=== PATIENT | female | born 1960 | race Caucasian/White ===

== ENCOUNTER 2022-10-29 10:43 | Emergency (ER) | payer OTHER ==
[~2022-10-29] VITALS: Ht 162.5 cm; Wt 72.6 kg
[2022-10-29] MEDS ORDERED: VIBRAMYCIN100 MG PO (11:13)
== END 2022-10-29 11:37 | disposition home or self-care (01) ==
LOC: ED 10:43
DX: S91.332A Puncture wound without foreign body, left foot, initial encounter (principal); Z88.1 Allergy status to other antibiotic agents; Z88.8 Allergy status to other drugs, medicaments and biological substances; W22.8XXA Striking against or struck by other objects, initial encounter; Y93.89 Activity, other specified; Y92.89 Other specified places as the place of occurrence of the external cause; Y99.8 Other external cause status